=== PATIENT | male | born 1985 | race African-American/Black ===

== ENCOUNTER 2021-03-27 06:19 | Emergency (ER) | payer SELFPAY ==
--- NOTE | 2021-03-27 06:52 | EDPHYS ---
Physician Documentation [facility] Name: Rodriguez Coronado Age: 35 yrs Sex: Male : 1985 Arrival Date: 03/27/2021 Time: 06:24 Bed 14 Private MD: ED Physician Luis Angel Brown HPI: 03/27 06:44 This 35 yrs old Black Male presents to ER via Ambulatory with complaints of Hemorrhoids.rn 06:48 The patient presents to the emergency department with pain in the rectal area. Onset: rn The symptoms/episode began/occurred 2 day(s) ago. Modifying factors: The symptoms are alleviated by OTC meds, The symptoms are aggravated by bowel movement. Associate signs and symptoms: Pertinent negatives: fever, lower GI bleeding. The patient has not experienced similar symptoms in the past. The patient has not recently seen a physician. Reports rectal pain, for a few days, thinks has hemorrhoids, has never had hemorrhoids, was constipated, pain improving but not gone.. Historical: - Allergies: 06:32 No Known Allergies; iw - Home Meds: 06:32 None [Active]; iw - PMHx: 06:32 None; iw - PSHx: 06:32 None; iw - Immunization history:: Adult Immunizations not up to date, Client reports having NOT received the Covid vaccine. - Social history:: Smoking status: Patient reports the use of cigarette tobacco products, smokes one-half pack cigarettes per day. - Family history:: not pertinent. - Hospitalizations: : No recent hospitalization is reported. ROS: 06:48 Constitutional: Negative for fever, chills, and weight loss, Abdomen/GI: Negative for rn abdominal pain, nausea, vomiting, diarrhea, and constipation, + hemorrhoids Exam: 06:48 Constitutional: This is a well developed, well nourished patient who is awake, alert, rn and in no acute distress. Abdomen/GI: soft, non-tender, + 2 small non-thrombosed external hemorrhoids, not bleeding, no evidence of perirectal abscess or tear. Vital Signs: 06:30 BP 138 / 100; Pulse 81; Resp 16; Temp 98.2; Pulse Ox 100% on R/A; Weight 97.52 kg; iw Height 5 ft. 8 in. (172.72 cm); 06:30 Body Mass Index 32.69 (97.52 kg, 172.72 cm) iw MDM: 06:44 Patient medically screened. rn 06:48 Differential diagnosis: hemorrhoids, fissure, abscess. Data reviewed: vital signs, rn nurses notes, and as a result, I will discharge patient. Counseling: I had a detailed discussion with the patient and/or guardian regarding: the historical points, exam findings, and any diagnostic results supporting the discharge/admit diagnosis, the need for outpatient follow up, to return to the emergency department if symptoms worsen or persist or if there are any questions or concerns that arise at home. Special discussion: I discussed with the patient/guardian in detail that at this point there is no indication for admission to the hospital. It is understood, however, that if the symptoms persist or worsen the patient needs to return immediately for re-evaluation. Based on the history and exam findings, there is no indication for further emergent testing or inpatient evaluation. I discussed with the patient/guardian the need to see the top taper machine for further evaluation of the symptoms. I discussed with the patient/guardian the need to see the general surgeon for further evaluation of the symptoms. ED course: NO evidence of thrombosed hemorrhoid, will dc home with anusol and GI/general surgery f/u with continues or worsens. . Administered Medications: No medications were administered Disposition: 03/27/21 06:51 Discharged to Home. Impression: Non-thrombosed hemorrhoids. - Condition is Stable. - Discharge Instructions: How to Take a Sitz Bath, Disposable Sitz Bath. - Prescriptions for Anusol- HC 2.5 % Rectal Cream - Apply to affected area 1 application by TOPICAL route every 8 hours As needed; 30 gram. - Medication Reconciliation Form, Thank You Letter, Antibiotic Education, Prescription Opioid Use, Work release form form. - Follow up: Vadim Lagunas MD; When: As needed; Reason: Recheck today's complaints, Re-evaluation by your physician. - Problem is new. - Symptoms have improved. Signatures: Danisha Puri, RN RN Luis Angel Blancas MD MD rn Smirch, Shelby, RN RN ss Corrections: (The following items were deleted from the chart) 07:29 06:51 03/27/2021 06:51 Discharged to Home. Impression: Non-thrombosed hemorrhoids. ss Condition is Stable. Forms are Medication Reconciliation Form, Thank You Letter, Antibiotic Education, Prescription Opioid Use. Follow up: Vadim Lagunas; When: As needed; Reason: Recheck today's complaints, Re-evaluation by your physician. Problem is new. Symptoms have improved. rn
--- NOTE | 2021-03-27 06:52 | ER ---
Nurse's Notes [facility] Name: Rodriguez Coronado Age: 35 yrs Sex: Male : 1985 Arrival Date: 03/27/2021 Time: 06:24 Bed 14 Private MD: Diagnosis: Non-thrombosed hemorrhoids Presentation: 03/27 06:30 Chief complaint: Patient states: had a BM two days ago and has had discomfort in his iw rectum , thinks it's a hemorrhoid. Coronavirus screen: At this time, the client does not indicate any symptoms associated with coronavirus-19. Ebola Screen: Patient negative for fever greater than or equal to 101.5 degrees Fahrenheit, and additional compatible Ebola Virus Disease symptoms Patient denies exposure to infectious person. Patient denies travel to an Ebola-affected area in the 21 days before illness onset. No symptoms or risks identified at this time. Initial Sepsis Screen: Does the patient meet any 2 criteria? No. Patient's initial sepsis screen is negative. Does the patient have a suspected source of infection? No. Patient's initial sepsis screen is negative. Risk Assessment: Do you want to hurt yourself or someone else? Patient reports no desire to harm self or others. Onset of symptoms was March 25, 2021. 06:30 Method Of Arrival: Ambulatory iw 06:30 Acuity: SILAS 4 iw Historical: - Allergies: 06:32 No Known Allergies; iw - Home Meds: 06:32 None [Active]; iw - PMHx: 06:32 None; iw - PSHx: 06:32 None; iw - Immunization history:: Adult Immunizations not up to date, Client reports having NOT received the Covid vaccine. - Social history:: Smoking status: Patient reports the use of cigarette tobacco products, smokes one-half pack cigarettes per day. - Family history:: not pertinent. - Hospitalizations: : No recent hospitalization is reported. Screenin:27 Abuse screen: Denies threats or abuse. Denies injuries from another. Nutritional ss screening: No deficits noted. Tuberculosis screening: Never had TB. Fall Risk None identified. Assessment: 07:27 Reassessment: Patient appears in no apparent distress at this time. Patient and/or ss family updated on plan of care and expected duration. Pain level reassessed. Patient is alert, oriented x 3, equal unlabored respirations, skin warm/dry/pink. 07:27 General: Appears in no apparent distress. comfortable, Behavior is calm, cooperative. ss Neuro: Level of Consciousness is awake, alert, obeys commands. Cardiovascular: Pulses are palpable in right radial artery and left radial artery. Respiratory: Airway is patent Respiratory effort is even, unlabored. EENT: Nares are clear. Derm: Skin is dry, Skin is pink, warm \T\ dry. normal. Vital Signs: 06:30 BP 138 / 100; Pulse 81; Resp 16; Temp 98.2; Pulse Ox 100% on R/A; Weight 97.52 kg; iw Height 5 ft. 8 in. (172.72 cm); 06:30 Body Mass Index 32.69 (97.52 kg, 172.72 cm) iw ED Course: 06:24 Patient arrived in ED. es 06:32 Triage completed. iw 06:32 Arm band placed on. iw 06:44 Luis Angel Brown MD is Attending Physician. rn 06:51 Vadim Lagunas MD is Referral Physician. rn 07:24 No provider procedures requiring assistance completed. Patient did not have IV access ss during this emergency room visit. 07:27 Patient has correct armband on for positive identification. Bed in low position. Call ss light in reach. Administered Medications: No medications were administered Outcome: 06:51 Discharge ordered by . rn 07:24 Discharged to home ambulatory. ss 07:24 Condition: good 07:24 Discharge instructions given to patient, family, Instructed on discharge instructions, follow up and referral plans. medication usage, Demonstrated understanding of instructions, follow-up care, medications, Prescriptions given X 1. 07:29 Patient left the ED. ss Signatures: Brittney Pittman Irene, RN RN iw Luis Angel Brown MD MD rn Smirch, Shelby, RN RN ss Corrections: (The following items were deleted from the chart) 06:33 06:30 Chief complaint: Patient states: had a BM two days ago and has had discomfort in iw his rectum iw 06:34 06:30 BP 138 / 100; Pulse 81bpm; Resp 16bpm; Pulse Ox 100% RA; 97.52 kg; Height 5 ft. 8 iw in.; BMI: 32.6; iw
[2021-03-27 07:41] VITALS: BP 138/100; TEMP 98.2; O2SAT 100
== END 2021-03-27 07:29 | disposition home or self-care (01) ==
LOC: ER 06:19
DX: K64.9 Unspecified hemorrhoids (principal); F17.210 Nicotine dependence, cigarettes, uncomplicated
CPT/HCPCS: 99282